=== PATIENT | female | born 1935 | race Caucasian/White ===

== ENCOUNTER 2022-05-11 16:34 | Emergency (ER) | payer MEDICARE, OTHER ==
[2022-05-11] MEDS ORDERED: Bacitracin Oint 28.35 GM Tube TOP ONE (18:18)
== END 2022-05-11 19:20 | disposition home or self-care (01) ==
LOC: CC.ED 16:34
DX: S81.812A Laceration without foreign body, left lower leg, initial encounter (principal); S63.617A Unspecified sprain of left little finger, initial encounter; S00.83XA Contusion of other part of head, initial encounter; I48.91 Unspecified atrial fibrillation; I10 Essential (primary) hypertension; K21.9 Gastro-esophageal reflux disease without esophagitis; E03.9 Hypothyroidism, unspecified; M19.90 Unspecified osteoarthritis, unspecified site; Z79.01 Long term (current) use of anticoagulants; Z79.899 Other long term (current) drug therapy; W18.09XA Striking against other object with subsequent fall, initial encounter
CPT/HCPCS: 70450; 73140-F4; 99284; A9270-GY